=== PATIENT | male | born 1950 | race Caucasian/White ===

== ENCOUNTER 2018-05-01 09:11 | Outpatient (CLI) | payer BC ==
--- NOTE | 2018-05-01 16:31 | Diagnostic Imaging Report ---
BOBBY DELA CRUZ [facility] [address] [facility].[address] [address] Report Submission Date: May 01, 2018 9:48:27 AM TANK CAR RECONDITIONER Patient Study Name: JASMYN FAUST Date: May 01, 2018 9:14:43 AM TANK CAR RECONDITIONER Modality Type: DX Gender: M Description: LOWER EXTREMITY : 52 Institution: [facility] Physician: BOBBY DELA CRUZ Examination: Plain film right foot History: Ran over foot 15 years ago with mail cart still painful. (Hx) Findings: 3 views of the right foot demonstrates advanced 1st digit articular degenerative changes. No fracture or dislocation. Inferior calcaneal spur. Impression: Advanced 1st digit degenerative changes. No evidence for acute appearing cortical abnormality. Electronically signed on May 01, 2018 9:48:27 AM TANK CAR RECONDITIONER by: Michael DAILY
== END 2018-05-01 09:13 ==
LOC: RAD 09:11
PROVIDERS: ATTEND Physician Assistant
DX: M24.174 Other articular cartilage disorders, right foot (principal); M79.671 Pain in right foot
CPT/HCPCS: 73630

== ENCOUNTER 2018-06-12 08:44 | Outpatient (CLI) | payer OTHER ==
--- NOTE | 2018-06-13 10:57 | History and Physical Report ---
JASMYN FAUST ADMISSION#.: [id number] : 1950 DATE OF VISIT: 06/12/2018 HISTORY AND PHYSICAL CHIEF COMPLAINT: Right first metatarsophalangeal joint bump pain. HISTORY OF PRESENT ILLNESS: The patient states that he has had this bump that has slowly developed over a long period of time and has continued to be more and more painful in his boots. The patient works as a [employer] in the winter months and has a large amount of pain in certain squatting positions as well as in certain shoegear such as the boots he uses for work. The patient has attempted conservative options and I believe up to this point nothing is going to fix this bump in my opinion and it is inhibiting his activities of daily life at times. The patient would like to have the bump removed at this time. The patient does not admit to any fevers, chills, nausea, vomiting, shortness of breath or chest pain at this time. Other than adjusting shoegear he has not found a whole lot that makes it feel better at this time. PAST MEDICAL HISTORY: The patient relates having a history of cracking 2 ribs as well as smoking 1 pack a day since he was 17 years old, as well as a most recent colonoscopy 4 to 5 years ago. The patient admits occasional alcohol use but not daily by any means. The patient admits blood pressure elevation at times but it always seems to go away after resting for a little bit when he comes into a doctors office and has a second blood pressure reading done. He relates it goes back to normal. The patient denies any substance abuse since 1969. Otherwise negative past medical history. PAST SURGICAL HISTORY: 1. In 1969 pilonidal cyst removal. 2. The patient had diverticulitis and had about 10 inches of his gut removed, according to him 6 years ago. 3. He also states that he had some sort of spine surgery to release pressure on the sciatic nerve. FAMILY HISTORY: Dad had heart disease, MD, other intestinal issues and lung cancer, and at age 74. Mom pretty much had a negative family history but he relates cataracts, and that she is still alive at 85 years old. SOCIAL AND OCCUPATIONAL HISTORY: The patient is retired, but works as a [employer] in the winter months. REVIEW OF SYSTEMS: Skin: The patient denies any rashes or skin problems currently. Eyes: No recent vision changes of any kind. Cardiovascular: No palpitations or chest pain. Gastrointestinal: No known abdominal pain but he does admit off and on diarrhea versus constipation. He admits that has been there for years now. Neurologic: No abnormal nerve sensations, problems or weakness. Genitourinary: No pain or blood in the urine or bowel movements. Ears, nose and throat: The patient admits a history of enlarged glands underneath the jaw on both sides as well as a small lipid mass on the left side of his neck which sounds like it has been there quite awhile. No other reported issues. Pulmonary: The patient admits sleep apnea and using a CPAP. Musculoskeletal: The patient admits shoulder pain in the past as well as back issues and currently pain at the right first metatarsophalangeal joint bump area. Psychiatric: Denies any depression or anxiety. CURRENT MEDICATIONS: None. He takes Tylenol only occasionally. ALLERGIES: NO KNOWN DRUG ALLERGIES. PERTINENT PHYSICAL EXAM: Mental status: Awake, alert and oriented x3. Head and neck: The patient has palpable enlarged glands underneath the jaw on bilateral sides. The patient also has a soft perhaps lipid mass noted on the left side of the neck with no abnormal discoloration over it. Otherwise, the patient seems to be atraumatic, normocephalic. Eyes: No obvious deviation or issues. Heart: Normal S1 and S2. No signs of atrial fibrillation. Neurologic: Symmetric sensation to both legs and arms. Light touch sensation is intact to the toes bilaterally. Ears, nose and throat: No obvious tracheal deviation or masses or abnormalities of the ears. Lungs: Clear to auscultation bilaterally. Gastrointestinal: Tenderness to palpation noted in the left upper quadrant of the abdomen. This was not noted anywhere else. This was unknown to the patient as he did not have pain noted there prior to my exam. There was no increase in tenderness with rebound. Vascular: 1+ DP and PT pulses bilaterally. Capillary refill time is about 3 or 4 seconds to the toes, right foot. There is no edema noted to bilateral feet. Musculoskeletal: There is pain to palpation at what feels to be osseous bump over the right first metatarsal head area. There is limited range of motion at the first metatarsophalangeal joint of the right foot. This is limited in both forefoot loaded and non-loaded positions. It feels like the toe is jamming against a dorsal osseous bump at the first metatarsal head. This is also palpable. The patient has no other gross abnormalities noted on clinical exam. Dermatologic: There is no erythema, no open lesions and no hyperkeratoses noted, bilateral feet. ASSESSMENT AND PLAN: 1. Hallux limitus, right first metatarsophalangeal joint. 2. Exostosis, right first metatarsophalangeal joint. 3. Smoker, no plans to quit. After discussion of possible treatment in the past with conservative treatment the patient has elected to go forward with surgical treatment at this time which would consist of an aggressive cheilectomy about the right first metatarsophalangeal joint in order to remove the osseous bump that is noted. The patient understands that despite his limited range of motion, he does not have any pain with range of motion in the joint itself and despite evidence of some arthritis in the joint itself I do not feel that it would be appropriate with his smoking status to do anything more aggressive with the joint than a cheilectomy. I do not feel it would be appropriate at this time to do an implant or a fusion in order to prophylactically treat his upcoming arthritis that will continue to worsen and eventually have pain. We will address that in the future as needed. This was explained to the patient today. The risks and benefits of the surgery of a right first metatarsophalangeal joint cheilectomy was discussed with the patient that include but are not limited to bleeding, infection, numbness, possible return of osseous bump or limited range of motion, loss of limb and loss of life were discussed and the patient agreed both by written and verbal consent to still go forward with the procedure at this time. I discussed heavily the importance of his smoking being an inhibitory factor to healing and have encouraged him already to not be smoking for surgery. He believes that he will heal just fine and does not have any plans to quit smoking at this time. He is aware that he may have a limited chance of healing even though he does not need to heal the bone but more so the skin and soft tissue, he is still limiting his likelihood to do so. The consent was signed and placed in the chart. A descriptive/illustrative description of the procedure was also shown and gone over with the patient showing where we would be taking out bone and a little extra bone off the top of the first metatarsal head potentially. The patient understands this and we went over presurgical discussion with what to take and what not to take and so forth, and the patient has signed those preoperative forms as well as the consent that we mentioned above. The patient understands that we will need to obtain further labs and imaging. These labs and imaging include a CBC, CMP, chest x-ray and possibly an EKG. The patient denied any real lung or heart history but with his sleep apnea and his age we may consider a chest x-ray and EKG anyway. A discussion was had with his primary care physician, Dr. Torre, and she states that she would like to see him prior to surgery in order to give appropriate clearance. I mentioned to her the left upper quadrant tenderness. We will have the patient see her and request clearance from her prior to surgery. An in depth discussion was had regarding surgery, preoperative and postoperative plan. The patient knows he will be in a surgical shoe for 3-6 weeks or more depending on his healing. We decided to plan on waiting to do surgery until after his trip so that he has ample time to heal and that we do not chow the healing. The patient knows that he will not be able to drive during the time he is in his surgical shoe. He understands this completely. The plan is for surgery to be scheduled on 07/23/18, which is a Saturday. We will submit everything for insurance clearance and our career center advisor to get this on the books. The patient knows he is not to get his labs and imaging done until basically 1 or 2 days before surgery. We will work on getting him into Dr. Poe office sooner than that for an appointment and clearance from her. The patient has no further questions or concerns and is looking forward to surgery to having this removed. He stated in the visit that if I see anything in the joint that we can fix he would like me to go ahead and fix it but based on our discussion with him I told him that I do not feel comfortable doing anything more aggressive than taking out some of the extra bone as he is unwilling to quit smoking at this time. The patient, I believe, seemed to understand this well. We may need to go into there in the future if the pain begins to worsen in that joint and consider doing something about the joint with some sort of potentially joint destructive procedure such as a fusion or an arthroplasty with implant. We will see the patient in July. Gorge Gallo D.P.M. (Dictated/Not Signed) Allen Job#: [id number] MTDD
== END 2018-06-12 08:46 ==
LOC: POD 08:44
PROVIDERS: ATTEND Podiatrist Foot & Ankle Surgery
DX: M20.61 Acquired deformities of toe(s), unspecified, right foot (principal); M25.774 Osteophyte, right foot; R10.12 Left upper quadrant pain; F17.210 Nicotine dependence, cigarettes, uncomplicated
CPT/HCPCS: 99214; G0463

== ENCOUNTER 2018-06-19 08:53 | Outpatient (CLI) | payer OTHER ==
[2018-06-19 09:34] LABS: eGFR (Non-African) > 60
== END 2018-06-19 08:55 ==
LOC: LAB 08:53
PROVIDERS: ATTEND Family Medicine
DX: R59.0 Localized enlarged lymph nodes (principal)
CPT/HCPCS: 36415; 80053

== ENCOUNTER 2018-06-27 08:48 | Outpatient (CLI) | payer OTHER ==
--- NOTE | 2018-06-28 04:01 | Diagnostic Imaging Report ---
ANDREA QUINN [facility] [address] [facility].[address] [address] Report Submission Date: Jun 27, 2018 9:08:54 PM GARBAGE COLLECTOR Patient Study Name: JASMYN FAUST Date: Jun 27, 2018 9:35:23 AM GARBAGE COLLECTOR Modality Type: CT\SR Gender: M Description: CT NECK SOFT TISSUE W/ : 52 Institution: [facility] Physician: ANDREA QUINN Computed tomography neck with contrast History: Enlarged left cervical lymph node Findings: Transverse neck sections are obtained after 80 mL intravenous Omnipaque 350. Mild mucosal thickening is present throughout the sinuses. Mild cervical spondylosis is present. The thyroid, larynx, pharynx, parapharyngeal spaces, prevertebral space, submandibular glands, and parotid glands are normal. There is no evidence of neck mass or lymphadenopathy. Minimal atherosclerotic plaque is present in the carotid bulbs bilaterally. Impression: 1. Mild chronic pansinusitis. 2. No evidence of mass or lymphadenopathy. Electronically signed on Jun 27, 2018 9:08:54 PM GARBAGE COLLECTOR by: Keshawn DAILY
== END 2018-06-27 09:00 ==
LOC: RAD 08:48
PROVIDERS: ATTEND Family Medicine
DX: J32.4 Chronic pansinusitis (principal); R59.0 Localized enlarged lymph nodes
CPT/HCPCS: 70491; Q9967

== ENCOUNTER 2018-07-17 13:30 | Outpatient (CLI) | payer OTHER ==
--- NOTE | 2018-07-17 21:21 | History and Physical Report ---
NOTE: The patient was seen in the outpatient clinic today, 07/17/18. CHIEF COMPLAINT: Right foot pain. HISTORY OF PRESENT ILLNESS: The patient has had right foot pain at the first metatarsophalangeal joint region for about 7-8 years on and off. He developed this bump and it has been quite sore in different shoes that he uses. He is especially having pain in the Christmastime when he acts as [place] and has pain in the boots that he uses as well. He does not have pain with motion of the metatarsophalangeal joint but it just hurts at the bump area is what the patient stated. PAST MEDICAL HISTORY: The patient is negative for diabetes, hepatitis, bleeding disorder, AIDS or HIV, anesthesia problem history, cardiovascular disease, COPD or pulmonary disease, stroke or substance abuse. He is, however, positive for tobacco use of around 1 pack per day since he was 17 years old. He also admits occasional alcohol use. PAST SURGICAL HISTORY: 1. In 1969 pilonidal cyst removal. 2. Diverticulitis where 10 inches of the gut was removed, which was about 15 years ago. I was misinformed on the last visit. 3. He also states he had spine surgery to release pressure on the sciatic nerve, which was 6 years ago. FAMILY HISTORY: His father had heart disease, myocardial infarction and other intestinal issues and lung cancer, and at the age of 75. I was corrected from my most recent visit where I thought it was age 74. His mom also had a pretty negative family history but relates that she had cataracts, and she is still alive at 85 years old. SOCIAL AND OCCUPATIONAL HISTORY: The patient is retired and works as [employer] in the winter months, and has fishing and hunting and ammunition collecting as a hobby. REVIEW OF SYSTEMS: Skin: The patient denies any rashes or skin problems at this time. Eyes: No recent vision changes of any kind. Cardiovascular: No palpitations or chest pain. Gastrointestinal: No known abdominal pain but he does admit off and on diarrhea still versus occasional constipation. He has had that for awhile now. Neurologic: No abnormal nerve sensations, problems or weakness at this time. He does admit, however, occasional numbness in the hands depending on if he is wearing a tighter jacket or in a wrong position for too long. Genitourinary: No pain or blood in the urine or bowel movements. Ears, nose and throat: The patient admits a history of enlarged glands underneath the jaw on both sides as well as a small mass on the left side of the neck which he had checked out by Dr. Torre recently and CT scan and there was no concerning areas according to the patient on the CT scan. This is the report he received. Pulmonary: The patient is positive for sleep apnea and using a CPAP. Musculoskeletal: The patient had shoulder pain in the past as well as back issues including 2 blown discs and currently has pain in the right first metatarsophalangeal joint above the area just proximal to that joint. Psychiatric: He denies any depression or anxiety still at this time. CURRENT MEDICATIONS: He has recently been placed on lisinopril 20 mg twice daily from Dr. Torre and he occasionally takes Tylenol as needed. ALLERGIES: NO KNOWN DRUG ALLERGIES. PERTINENT PHYSICAL EXAM: Mental status: Awake, alert and oriented x3. Head and neck: The patient still has palpable enlarged glands underneath the jaw on bilateral sides as well as a soft, likely lipid mass noted on the left side of the neck with no abnormal discoloration. The patient otherwise is atraumatic and normocephalic. The patient has no pain to palpation of these areas. Eyes: No obvious deviation or issues and is able to follow my finger in all directions. Heart: Normal S1 and S2. No signs of atrial fibrillation. Neurologic: Symmetric sensation to both legs is present. Light touch sensation is intact to the toes, right foot. Ears, nose and throat: No obvious tracheal deviation or masses or abnormalities of the ears. Lungs: There may have been a slight rub in the posterior inferior left lung area with auscultation today. Otherwise, clear to auscultation bilaterally. Gastrointestinal: There is no tenderness to palpation in the left upper quadrant as there was previously. No concerning areas to palpation and bowel sounds were heard in all 4 quadrants prior to palpation exam. Vascular: 1+ DP and PT pulses, right foot. Capillary refill time is about 3 seconds to the toes, right foot. There is no edema noted to the right foot, however, there is obviously mild edema to bilateral lower legs where the socks are pulled down and you can see the sock lines. This is pitting edema. Musculoskeletal: There is pain on palpation at the osseous bump over the right first metatarsal head area. This is about 1 cm in width and spans 0.5 to 1 cm in length. There is limited range of motion also of the first metatarsophalangeal joint of the right foot with the forefoot unloaded and especially with the forefoot loaded. It seems to be pretty limited either way, however. The toe seems to be jamming against the dorsal osseous bump at the first metatarsal head. The bump is quite palpable. The patient has no other gross abnormalities noted on clinical exam. 5/5 muscle strength about the ankle and subtalar joint of the right lower extremity. Dermatologic: There is no erythema, no open lesions, no hyperkeratosis and no ecchymosis noted, right foot. ASSESSMENT AND PLAN: 1. Hallux limitus, right first metatarsophalangeal joint. 2. Right foot exostosis of the first metatarsophalangeal joint area. 3. Smoker, chronic. 4. Preoperative labs and tests. We had an in depth discussion today regarding the plan for surgery with the appropriate incision and removal of excess bone and subsequent closure. The patient knows that he will be in a surgical shoe for 3 or 4 weeks likely and is to ambulate only and stand only in the surgical shoe. The patient was dispensed a surgical shoe today and signed to be billed by [facility] [employer] [facility] separately. The patient knows that will likely not go through insurance. We had a discussion about why we are doing minimal surgery to address the bump only which seems to be his source of pain according to the patient and that is due to his smoking. I do not feel comfortable doing more bone work to address the bunion/hallux limitus that also has an arthritic component. The patient knows that we will address that in the future if he can quit smoking and we will go forward from there. He is hoping to quit smoking once he is off his foot somewhat for this surgery. The risks and benefits of the surgery were discussed on our previous visit including but not limited to bleeding, infection, numbness, possible return of osseous bump, limited range of motion, loss of limb and loss of life. The patient had agreed, both by written and verbal consent to go forward with surgery at this time for the right first metatarsophalangeal joint cheilectomy. The patient did not need to sign a new consent as it is good for a year, and he signed it 06/12/18. We previously went over a picture example of what we will be doing for the surgery and he was in agreement with that as well. The patient understands that we need further labs and imaging including a CBC, chest x-ray and EKG due to his age. The patient has a smoking history which is the main reason why I would still like a chest x-ray as well as the fact that he had a small seemingly rub in the left lower posterior area of his lungs. The patient will obtain these on Saturday. We have received clearance from Dr. Torre for surgery to go forward at this time. We will send that to [facility] for all paperwork to be in the same place. The patient understands the plan and has no other questions about surgery at this time. He knows to plan to be here at 6:00 or 6:30 on Saturday morning next week depending on when Surgery asks him to be there. He knows to bring someone with him to the appointment as well as to take him home. He will receive pain medication there. He is to bring the surgical shoe that I gave him today to surgery so that we can apply it after surgery that day. The patient has no further questions and is grateful for the meeting today and looks forward to surgery on Saturday, understanding that the goal is to get rid of that bump pain and if we need to do anything with the joint in the future due to any arthritic issues or bunion issues then we will do so if he can get his smoking under control and quit at that time. The patient has no further questions. We will see him on Saturday. Lesa FernándezP.Sherrell. (Dictated/Not Signed) Allen Job#: [id number] ] ABIMBOLA
== END 2018-07-17 13:32 ==
LOC: POD 13:30
PROVIDERS: ATTEND Podiatrist Foot & Ankle Surgery
DX: M20.61 Acquired deformities of toe(s), unspecified, right foot (principal); M25.771 Osteophyte, right ankle; F17.210 Nicotine dependence, cigarettes, uncomplicated
CPT/HCPCS: 99213; G0463

== ENCOUNTER 2018-07-21 11:43 | Outpatient (CLI) | payer OTHER ==
[2018-07-21 12:20] LABS: BASOPHILS % 0.7 (0.0-1.5); EOSINOPHILS % 2.5 % (0.0-6.8); MEAN CORPUSCULAR HEMOGLOBIN 31.4 pg (28.0-34.0); NEUTROPHILS # 7.4 # k/uL (1.4-7.7)
--- NOTE | 2018-07-21 12:32 | Diagnostic Imaging Report ---
ANALISA FREGOSO [facility] [address] [facility] [address] [address] Report Submission Date: Jul 21, 2018 12:31:18 PM CDT Patient Study Name: JASMYN FAUST Date: Jul 21, 2018 11:55:34 AM CDT Modality Type: DX Gender: M Description: CHEST 2VIEW : 52 Institution: [facility] Physician: ANALISA FREGOSO Examination: PA and lateral chest. History: Evaluate lung peacock. COUGH Comparison exam: None provided. Findings: PA and lateral views of the chest demonstrates a normal cardiac and mediastinal silhouette. Right infrahilar haziness. No blunting of the costophrenic margins. Osseous structures are appropriate for age. Impression: Right infrahilar infiltrate. No effusion. Electronically signed on Jul 21, 2018 12:31:18 PM CDT by: Michael DAILY
== END 2018-07-21 11:45 ==
LOC: LAB 11:43
PROVIDERS: ATTEND Podiatrist Foot & Ankle Surgery
DX: M20.5X1 Other deformities of toe(s) (acquired), right foot (principal); Z01.812 Encounter for preprocedural laboratory examination; M89.9 Disorder of bone, unspecified
CPT/HCPCS: 36415; 71046; 85025

== ENCOUNTER 2018-08-07 08:46 | Outpatient (CLI) | payer OTHER ==
--- NOTE | 2018-08-10 16:42 | OP Clinic Progress Note ---
SUBJECTIVE: Rip Garcia is a 67-year-old male who presents to the clinic today for follow-up of a right first metatarsophalangeal joint cheilectomy performed on 07/23/18. The patient denies any complaints and states that he has virtually zero pain. He does not admit to any fevers, chills, nausea, vomiting, shortness of breath or chest pain. The dressings have remained fairly well clean, dry and intact. OBJECTIVE: Vitals: Temperature 99.2 degrees Fahrenheit, heart rate 65, respiration rate 18, blood pressure 122/77. O2 saturation is 96% on room air. Vascular: 2+ DP and PT pulses, right foot. Capillary refill time is less than 3 seconds to the toes of the right foot. There is mild edema noted along the incision site near the surgical site. Dermatologic: The skin appears to be completely healed and the sutures were removed today with skin well healed. There is no erythema, nor malodor, drainage or bleeding noted. Musculoskeletal: There is very mild pain on palpation noted in the distal aspect of the incision site and very mild pain with dorsiflexion of the first metatarsophalangeal joint, right foot. The patient is not having any significant pain at all at this time. Neurologic: Light touch sensation is intact to the toes, right foot. ASSESSMENT AND PLAN: 1. Postop care. 2. Status post first metatarsophalangeal joint cheilectomy, right foot; date of surgery 07/23/18. PROCEDURE #1: Sutures from the right foot were removed without incident today. An adhesive solution was applied to the sides of the incision site and Steri- Strips were applied across the incision. This was done just to help augment continued protection while the patient is healing underlying tissues. The patient was instructed to not shower until tomorrow evening. He is not to bathe at this time. The patient was told to just let the Steri-Strips fall off on their own. The patient is to continue using an Kunal wrap for the next week and a surgical shoe. At that time he can start transitioning into a regular shoe. The patient was encouraged to decrease his walking as he is still getting a decent amount of swelling. He has been walking the dog, etc. The patient has no further questions or concerns. Return to the clinic on 08/20/18 before I leave town. The patient knows that if it is looking great and he is not having any issues at that time he can cancel that appointment and see me instead in about a month from now right before or after his trip to [place] which will last about a week. The patient will see me either in the health clinic or here in outpatient clinic. The patient understands these things and we will see him potentially on 08/20/18. Lesa FernándezP.M. (Dictated/Not Signed) Allen JOB#: [id number] MTDD
== END 2018-08-07 08:48 ==
LOC: POD 08:46
PROVIDERS: ATTEND Podiatrist Foot & Ankle Surgery
DX: Z48.02 Encounter for removal of sutures (principal); M20.5X1 Other deformities of toe(s) (acquired), right foot
CPT/HCPCS: A4554